=== PATIENT | male | born 1965 | race Caucasian/White ===

== ENCOUNTER 2018-02-27 13:40 | Outpatient (CLI) | payer OTHER ==
--- NOTE | 2018-02-27 14:50 | MRI ---
MRI LUMBAR SPINE: HISTORY: Spinal stenosis. Low back pain. M48.062. TECHNIQUE: Multiplanar, multisequence, noncontrast enhanced MRI of the lumbar spine are obtained. FINDINGS: For the purposes of this dictation, the last freely mobile vertebral body will be considered to be th e L5 vertebral body. All other vertebral bodies are numbered according to this. T12-L1/L1-L2/L2-L3: Unremarkable. L3-L4: A mild broad-based disk bulge is seen. Some disk desiccation is seen. Bilateral facet hyper trophy is seen. A small amount of fluid is seen in the L3-L4 facet joint. The neural foramen are pa tent. L4-L5: Desiccation is seen. 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 A broad-based disk bulge and bilateral facet hypertrophy is seen. Some fluid is seen in the L4-L5 facet joint. This results in a moderate degree of central and lateral recess stenosis. The neural foramen are patent. L5-S1: A mild broad-based disk bulge is seen. No significant degree of central stenosis or neural f oraminal narrowing is seen. IMPRESSION: Disk desiccation at L3-L4 and L4-L5. There is a broad-based central disk protrusion with an annular fissure at the L4-L5 level, resulting in a moderate degree of central and lateral recess stenosis. T he neural foramen are patent. POS: MARTY
== END 2018-02-27 13:41 | disposition home or self-care (01) ==
LOC: BICMRI 13:40
PROVIDERS: ATTEND Anesthesiology Pain Medicine
DX: M48.062 Spinal stenosis, lumbar region with neurogenic claudication (principal); M51.26 Other intervertebral disc displacement, lumbar region
CPT/HCPCS: 72148

== ENCOUNTER 2019-07-07 09:48 | Outpatient (CLI) | payer OTHER ==
--- NOTE | 2019-07-07 10:26 | RAD ---
EXAM: XR Lumbar Spine Min 4 View PROVIDED CLINICAL HISTORY: Radiculopathy lumbar region. COMPARISON: None FINDINGS: 5 nonrib-bearing lumbar-type vertebral bodies are seen. The vertebral body heights and intervertebral disc spaces are within normal limits. Scattered osteophytes are seen in the lower thoracic as well as lower lumbar spine. No fracture or subluxation is seen. No abnormal translational motion is seen b etween the flexion and extension views lumbar spine. IMPRESSION: Minimal degenerative changes lumbar spine.
== END 2019-07-07 09:49 | disposition home or self-care (01) ==
LOC: BICRAD 09:48
PROVIDERS: ATTEND Neurological Surgery
DX: M47.26 Other spondylosis with radiculopathy, lumbar region (principal)
CPT/HCPCS: 72110

== ENCOUNTER 2019-12-08 05:41 | Outpatient (CLI) | payer OTHER ==
[2019-12-08 14:00] LABS: Hemoglobin 15.1 g/dL (14.0-18.0); Mean Corpuscular HGB CONC 33.9 g/dL (32.0-36.0); Mean Corpuscular Hemoglobin 31.6 pg (27.0-31.0); Mean Corpuscular Volume 93.2 fL (78.0-98.0); Mean Platelet Volume 8.2 fL (7.4-10.4); Platelet Count 216 thou/uL (130-400); RBC Distribution Width 11.5 % (11.5-14.5); Red Blood Cell (RBC) Count 4.79 mill/uL (4.70-6.10); White Blood Cell (WBC) Count 8.3 thou/uL (4.8-10.8)
[2019-12-08 14:08] LABS: INR-International Normal Ratio 0.9; PTT 27.9 sec (22.9-36.1); Prothrombin Time 12.3 sec (12.0-14.7)
--- NOTE | 2019-12-08 17:53 | EKG ---
Test Reason : Blood Pressure : / mmHG Vent. Rate : 064 BPM Atrial Rate : 064 BPM P-R Int : 146 ms QRS Dur : 104 ms QT Int : 408 ms P-R-T Axes : 068 -31 076 degrees QTc Int : 420 ms Normal sinus rhythm Left axis deviation Nonspecific T wave abnormality Abnormal ECG When compared with ECG of 26-JUN-2014 09:40, No significant change was found Confirmed by MOMO GARZA, . SNancie (4) on 12/08/2019 5:52:23 PM Referred By: CHANDLER Confirmed By:DR. Gabriella BARR MD
[2019-12-09 13:10] LABS: SARS-CoV-2 MS2 Positive; SARS-CoV-2 N Gene Negative; SARS-CoV-2 S Gene Negative; SARS-CoV-2 orf1ab Negative
== END 2019-12-08 05:42 | disposition home or self-care (01) ==
LOC: LABBT 05:41
PROVIDERS: ATTEND Neurological Surgery
DX: Z01.818 Encounter for other preprocedural examination (principal); Z11.59 Encounter for screening for other viral diseases; M48.061 Spinal stenosis, lumbar region without neurogenic claudication
CPT/HCPCS: 85027; 85610; 85730; 87635; 93005; 93010; U0003

== ENCOUNTER 2019-12-11 09:51 | Day surgery (SDC) | payer OTHER ==
[2019-12-04 09:03] VITALS: BMI 26.6
--- NOTE | 2019-12-10 11:58 | HP ---
This is a H and P for surgery on 12/10 for laminectomy, case #[id number]. HISTORY OF PRESENT ILLNESS: Mr. Weiner is a 54-year-old male with 5+ years of lower back and right leg pain. His leg pain is in his posterior leg and is constant. It is preventing him from doing the things he likes to do. This started sometime in June when he was doing some yard work and was bedridden for a few days. His pain used to respond to injections and physical therapy, but it is no longer offering him any relief. Standing and sitting too long increases back and leg pain, making his pain almost unbearable. He would like to proceed with laminectomy. He is scheduled for surgery on 12/11/2019. MEDICATIONS: 1. Lisinopril. 2. Synthroid. 3. Venlaxafine. PAST MEDICAL HISTORY: 1. DM 2. 2. Hypothyroidism. 3. Hypertension. 4. ROHIT/MDD. SURGICAL HISTORY: 1. Open heart in 1978. 2. Hernia repair. 3. Left distal biceps repair in 2014. FAMILY HISTORY: Father , family history unknown. Mother , family history unknown. SOCIAL HISTORY: Nonsmoker. . Denies illicit drugs and alcohol use. ALLERGIES: NO KNOWN DRUG ALLERGIES. REVIEW OF SYSTEMS: CONSTITUTIONAL: Denies fever or chills. ENT: Denies change in vision or hearing. CARDIAC: Denies chest pain, shortness of breath, or diaphoresis. PULMONARY: Denies shortness of breath, cough, or hemoptysis. GI: Denies fecal incontinence, abdominal pain, nausea, vomiting, diarrhea, or change in stool formation and consistency. : Denies urinary incontinence, trouble with urination, frequency of urination , or bloody urine. SKIN: Denies skin rash, bruising, bleeding, or skin masses. MUSCULOSKELETAL: As per history of present illness. NEUROLOGIC: As per history of present illness. PSYCHOLOGIC: Denies anxiety, depression, or behavior changes. PHYSICAL EXAMINATION: VITAL SIGNS: Weight 168, height 67. HEENT: Pupils are equal. Extraocular movements are intact. NECK: Normal, soft, and supple. No masses are noted. Range of motion is intact and nonpainful. NEUROLOGIC: Awake, alert, and oriented x3. Memory, attention, fund of knowledge, and language normal. Cranial nerves normal and grossly intact. Lower extremities; he has good strength bilateral in the iliopsoas, quadriceps, hamstrings, anterior tib, EHL, and gastrocnemius. There is no area of dermatomal sensory loss. The reflexes are symmetric. The toes are downgoing. IMAGING STUDIES: Lumbar MRI; L4-L5 broad disk bulge, resulting in spinal canal stenosis; L5-S1 mild disk height loss with neuroforaminal narrowing. ASSESSMENT: Lumbar spinal stenosis. PLAN: 1. Laminectomy at L4-L5 and laminectomy at L5-S1. 2. Preoperative testing, CBC, PT/PTT, COVID-19. 3. Anesthesia clearance. 4. Informed consent. We discussed the indications, risks, benefits, alternatives, and expected results from surgery. The risks discussed included, but were not limited to, bleeding, infection, CSF leak, nerve damage, weakness, incontinence, cauda equina injury, arachnoiditis, paralysis, ventilator dependency, wheelchair dependency, loss of vision, cardiopulmonary complications of anesthesia, or . Long-term complications discussed included, but were not limited to spinal instability and future surgery. He understands the risks and is willing to proceed. Job ID: [id number] [facility]
[2019-12-11] MEDS ORDERED: Fentanyl 100 MCG/2 ML VIAL ONE (11:30)
[2019-12-11] MEDS ORDERED: Bupivacaine PF 0.5% 30 ML VIAL ONE (11:35)
[2019-12-11] MEDS ORDERED: EPINEPHrine 1 MG/ML AMP ONE (11:35)
[2019-12-11] MEDS ORDERED: Thrombin 5000 UNITS/5 ML VIAL ONE (11:36)
[2019-12-11] MEDS ORDERED: Rocuronium Bromide 10 MG/ML (10ML VIAL) ONE (11:43)
[2019-12-11] MEDS ORDERED: Ketorolac Tromethamine 30 MG/ML VIAL ONE (11:43)
[2019-12-11] MEDS ORDERED: EPHEDRINE 25 MG/5 ML SYRINGE ONE (11:43)
[2019-12-11] MEDS ORDERED: Glycopyrrolate 0.2 MG/ML 5 ML SYRINGE ONE (11:43)
[2019-12-11] MEDS ORDERED: Lidocaine 1% PF 5 ML VIAL ONE (11:43)
[2019-12-11] MEDS ORDERED: Metoclopramide HCl 10 MG/2 ML VIAL ONE (11:43)
[2019-12-11] MEDS ORDERED: PHENYLEPHRINE-NS 100 MCG/ML 10 ML SYRINGE ONE (11:43)
[2019-12-11] MEDS ORDERED: Dexamethasone 20 MG/5 ML VIAL ONE (11:43)
[2019-12-11] MEDS ORDERED: PROPOFOL 200 MG/20 ML VIAL ONE (11:43)
[2019-12-11] MEDS ORDERED: Ondansetron PF 4 MG/2 ML Vial ONE (11:43)
[2019-12-11] MEDS ORDERED: HYDROmorphone 2 MG/ML VIAL ONE (14:38)
[2019-12-11] MEDS ORDERED: Mag-Al 1200 mg/1200 mg/30 ML UDCUP PO PRN (14:48)
[2019-12-11] MEDS ORDERED: tiZANidine HCl 4 MG TAB PO PRN (14:48)
[2019-12-11] MEDS ORDERED: Ketorolac Tromethamine 30 MG/ML VIAL IVP PRN (14:48)
[2019-12-11] MEDS ORDERED: Morphine 2 MG/ML VIAL SLOW IVP PRN (14:48)
[2019-12-11] MEDS ORDERED: traMADol HCl 50 MG TAB PO PRN (14:48)
[2019-12-11] MEDS ORDERED: HYDROcodone/Acetaminophen 7.5/325 mg Tablet PO PRN (14:48)
[2019-12-11] MEDS ORDERED: Scopolamine 1.5 mg/72 hour Patch TD PRN (14:48)
[2019-12-11] MEDS ORDERED: Milk Of Magnesia 30 ML UDCUP PO PRN (14:48)
[2019-12-11] MEDS ORDERED: Ondansetron PF 4 MG/2 ML Vial IVP PRN (14:48)
[2019-12-11] MEDS ORDERED: Prochlorperazine 10 MG/2 ML VIAL IM PRN (14:48)
[2019-12-11] MEDS ORDERED: Acetaminophen 325 MG TAB PO PRN (14:48)
[2019-12-11] MEDS ORDERED: diphenhydrAMINE 50 MG/ML VIAL IVP PRN (14:48)
[2019-12-11] MEDS ORDERED: Sodium Chloride 0.9% 1,000 ML IV SCH (15:00)
[2019-12-11] MEDS ORDERED: Tamsulosin HCl 0.4 MG CAP PO PRN (15:22)
--- NOTE | 2019-12-11 19:57 | OP ---
DATE OF PROCEDURE: 12/11/2019 [employer] ATTENDANT: Jamie Hadley PA-C PREOPERATIVE INDICATION: Treat pain and prevent neurological deterioration. PREOPERATIVE DIAGNOSES: L4-5 lateral recess stenosis with neurogenic claudication, left L5-S1 lateral recess stenosis with S1 radicular irritation. POSTOPERATIVE DIAGNOSES: L4-5 lateral recess stenosis with neurogenic claudication, left L5-S1 lateral recess stenosis with S1 radicular irritation. OPERATIVE PROCEDURE: Decompressive laminectomy with medial facetectomy and foraminotomy L4-5 and left side of L5-S1 operating microscope. PREOPERATIVE MEDICATION: Ancef 2 g IV. DRAIN NUMBER: Zero. DRAIN TYPE: None. DESCRIPTION OF PROCEDURE: Patient was brought to the operating room. General endotracheal anesthesia was induced. The patient was positioned prone on the operating table with the chest and hips supported by gel-filled chest rolls. A lateral fluoro radiograph was used to plan our incision. The lumbar skin was sterilely prepped and draped. We opened with a 10 blade knife and controlled bleeding with bipolar and monopolar cautery. We used monopolar cautery to dissect through subcutaneous tissues to the thoracodorsal fascia. We incised the fascia in the midline and reflected the paraspinal muscles off the spinous process and the lamina of L4, L5, and S1. A lateral fluoro radiograph confirmed the levels upon which we were operating. We then removed the spinous process of L4 and the top of L5. We used a Leksell rongeur to thin the lamina of the L5 on the left side. With Kerrison rongeur, we fashioned a laminectomy at L4-L5 and on the left at L5-S1. In order to decompress the lateral recesses, we had to perform medial facetectomies on both sides and once we had uncovered the nerve roots in the lateral recess, we performed foraminotomies over the exiting nerve roots. This included both L5 nerve roots and the left S1 nerve root. The operative microscope was brought into the field. Under microscopic magnification and using microsurgical techniques, we carefully inspected the L5 roots and the S1 root on the left. We ensured that they were well decompressed. We mobilized medially and ensured there was no loose disk material ventral. We waxed the bone edges. We controlled epidural bleeding with gentle bipolar cautery. We irrigated copiously with bacitracin irrigation. We closed the wound in anatomical layers. We applied a sterile dressing. This was a clean case, no contamination. Job ID: [id number]
[2019-12-11] MEDS ORDERED: CEFAZOLIN 2 GM in Premix Bag 1 BAG IVPB SCH (20:00)
[2019-12-12] MEDS ORDERED: Levothyroxine Sodium 112 MCG TAB PO SCH (06:00)
[2019-12-12] MEDS ORDERED: Lisinopril 10 MG TAB PO SCH (09:00)
== END 2019-12-11 17:53 | disposition home or self-care (01) ==
LOC: SDC 09:51
PROVIDERS: ATTEND Neurological Surgery
PROC: 00NY0ZZ Release Lumbar Spinal Cord, Open Approach (ICD-10-PCS; principal; 2019-12-11)
DX: M48.062 Spinal stenosis, lumbar region with neurogenic claudication (principal); E11.9 Type 2 diabetes mellitus without complications; E03.9 Hypothyroidism, unspecified; I10 Essential (primary) hypertension; F41.1 Generalized anxiety disorder; F32.9 Major depressive disorder, single episode, unspecified; Z79.899 Other long term (current) drug therapy
CPT/HCPCS: 76000; J0171; J0690; J1100; J1170; J1885; J2001; J2405; J2704; J2765; J3010; J3370; J3490; S0020